=== PATIENT | female | born 1980 | race Caucasian/White ===

== ENCOUNTER 2018-12-13 05:37 | Inpatient (IN) ==
[2018-12-13] MEDS ORDERED: BUTORPHANOL 2 MG/ML VIAL IV PRN (05:57)
[2018-12-13] MEDS ORDERED: MEPERIDINE 50 MG/1 ML VIAL IV PRN (05:57)
[2018-12-13] MEDS ORDERED: OXYTOCIN/LR 20 UNIT/1,000 ML BAG IV SCH (06:00)
[2018-12-13] MEDS: LACTATED RINGERS 1,000 ML IV SCH ×2 (06:36→20:57)
[2018-12-13 06:41] LABS: Basophils # 0.1 10*3/uL (0.0-0.2); Basophils % 0.6 % (0.0-0.8); Eosinophils # 0.4 10*3/uL (0.0-0.87); Eosinophils % 2.7 % (0.00-10.9); Hematocrit 33.4 VOL% (35.7-47.0); Immature Granulocytes % 2.9 %; Immature Granulocytes Absolute 0.41 #; Lymphocytes # 2.6 10*3/uL (1.4-4.0); Lymphocytes % 18.2 % (21.3-54.2); Mean Corpuscular HGB Conc 32.9 GM/DL (32-36); Mean Corpuscular Volume 89.3 FL (87-102); Mean Platelet Volume 9.7 FL (9.6-12.0); Monocytes % 6.1 % (1.7-12.7); Neutrophils % 69.5 % (38.7-73.9); Platelet Count 340 T/CUMM (130-400); Red Blood Count 3.74 MC/CUMM (3.8-5.5); Red Cell Distribution Width 12.8 % (9.3-17.3)
[2018-12-13 07:04] LABS: Alanine Aminotransferase 12 U/L (13-56); Albumin 2.5 G/DL (3.4-5.0); Alkaline Phosphatase 165 U/L (45-117); Aspartate Amino Transferase 14 U/L (0-37); Bilirubin,Total < 0.39 MG/DL (0.2-1.0); Blood Urea Nitrogen 11 MG/DL (7-18); Estimated Glom Filtration Rate 127 ML/MIN; Glucose 107 MG/DL (74-106); Osmolality,Calculated 268.1 MOS/KG (273-304); Total Protein 6.7 G/DL (6.4-8.3)
[2018-12-13] MEDS ORDERED: INFLUENZA VIRUS VACCINE 0.5 ML SYRINGE IM ONE (07:15)
[2018-12-13] MEDS ORDERED: FAMOTIDINE 20 MG/2 ML VIAL IV ONE (07:49)
[2018-12-13] MEDS ORDERED: LACTATED RINGERS 1,000 ML IV ONE (07:49)
[2018-12-13] MEDS ORDERED: CITRIC ACID/SODIUM CITRATE 30 ML UDCUP PO ONE (07:49)
[2018-12-13] MEDS ORDERED: ePHEDrine 50 MG/ML AMP IV PRN (07:49)
[2018-12-13] MEDS ORDERED: NALOXONE 0.4 MG/ML VIAL IV PRN (07:50)
[2018-12-13] MEDS ORDERED: hydrOXYzine HCL 25 MG/1 ML VIAL IM PRN (07:50)
[2018-12-13] MEDS ORDERED: PROMETHAZINE 25 MG/1 ML VIAL IM ONE (07:50)
[2018-12-13] MEDS ORDERED: diphenhydrAMINE 50 MG/1 ML VIAL IV PRN ×2 (07:50)
[2018-12-13] MEDS ORDERED: fentaNYL 2 MCG/ROPIV 0.2% EPID 100 ML EPIDURAL SCH (08:00)
[2018-12-13] MEDS: ONDANSETRON 4 MG/2 ML VIAL IV PRN ×2 (10:26→19:33)
[2018-12-13] MEDS ORDERED: TRANEXAMIC ACID 1,000 MG/10 ML VIAL ONE (11:50)
[2018-12-13] MEDS ORDERED: miSOPROStol 200 MCG TABLET ONE (11:50)
[2018-12-13] MEDS ORDERED: METHYLERGONOVINE 0.2 MG/1 ML AMP ONE (11:51)
[2018-12-13] MEDS ORDERED: ceFAZolin 2,000 MG in PREMIX 1 EACH IV ONE (11:51)
[2018-12-13] MEDS ORDERED: CARBOPROST TROMETHAMINE 250 MCG/ML AMP IM ONE (11:51)
[2018-12-13] MEDS ORDERED: OXYTOCIN/LR 20 UNIT/1,000 ML BAG IV ONE ×2 (11:51→13:25)
[2018-12-13] MEDS ORDERED: BUPIVACAINE SPINAL 0.75% 2 ML AMP SPINAL ONE (12:00)
[2018-12-13] MEDS ORDERED: EPINEPHrine 1 MG/ML VIAL ONE (12:00)
[2018-12-13] MEDS ORDERED: DEXAMETHASONE 4 MG/1 ML VIAL ONE (12:01)
[2018-12-13] MEDS ORDERED: BUPIVACAINE 0.5% 50 ML VIAL ONE (12:01)
[2018-12-13 12:21] LABS: Apearance,Urine CLEAR (Clear); Bacteria,Urine Occasional /HPF (Few); Bilirubin,Urine Negative (Negative); Blood, Urine Small mg/dL (Negative); Glucose,Urine (UA) Negative (Negative); Ketones,Urine Negative (Negative); Mucus,Urine Occasional /LPF (Occasional); Nitrite,Urine Negative (Negative); Protein,Urine Negative; RBC,Urine 11 /HPF (0-4); Renal Epithelial Cells,Urine Occasional /HPF (<1); Squamous Epithelial Cell,Urine Occasional /HPF (0-10); Urine Color Yellow (Yellow); Urine Urobilinogen < 2.0 EU/DL (0.2-1.0); WBC,Urine 2 /HPF (0-6)
[2018-12-13] MEDS ORDERED: DIPH/TET/ACEL PERT BOOSTER VACCINE 0.5 ML VIAL IM ONE (13:25)
[2018-12-13] MEDS ORDERED: WITCH HAZEL PADS 100/JAR TOP PRN (13:25)
[2018-12-13] MEDS ORDERED: BISACODYL 10 MG SUPP RECTAL PRN (13:25)
[2018-12-13] MEDS ORDERED: ONDANSETRON 4 MG/2 ML VIAL IV PRN (13:25)
[2018-12-13] MEDS ORDERED: MEASLES/MUMPS/RUBELLA VACCINE 0.5 ML VIAL SUBCUT ONE (13:25)
[2018-12-13] MEDS ORDERED: HYDROCORTISONE 2.5% RECTAL CREAM 30 GM TUBE TOP PRN (13:25)
[2018-12-13] MEDS ORDERED: RHO(D) IMMUNE GLOBULIN 300 MCG SYRINGE IM ONE (13:25)
[2018-12-13] MEDS ORDERED: LANOLIN 50% CREAM 0.3 OZ TUBE TOP PRN (13:25)
[2018-12-13] MEDS ORDERED: BENZOCAINE 20%/MENTHOL 0.5% SPRAY 56 GM CAN TOP PRN (13:25)
[2018-12-13] MEDS ORDERED: ACETAMINOPHEN 325 MG TABLET PO PRN (13:25)
[2018-12-13] MEDS ORDERED: fentaNYL 100 MCG/2 ML VIAL ONE (13:46)
[2018-12-13] MEDS ORDERED: MORPHINE 10 MG/10 ML VIAL ONE (13:47)
[2018-12-13] MEDS ORDERED: PHENYLEPHRINE 1 MG/10 ML SYRINGE IV ONE (13:48)
[2018-12-13] MEDS: ceFAZolin 1,000 MG in SYRINGE 1 EACH IV SCH (20:47)
[2018-12-13] MEDS: DOCUSATE SODIUM 100 MG CAPSULE PO SCH (21:45)
[2018-12-14] MEDS: ceFAZolin 1,000 MG in SYRINGE 1 EACH IV SCH (04:13)
[2018-12-14] MEDS: IBUPROFEN 800 MG TABLET PO PRN ×3 (04:34→19:57)
[2018-12-14 05:18] LABS: Basophils # 0.1 10*3/uL (0.0-0.2); Basophils % 0.2 % (0.0-0.8); Eosinophils # 0.1 10*3/uL (0.0-0.87); Eosinophils % 0.2 % (0.00-10.9); Hematocrit 27.7 VOL% (35.7-47.0); Hemoglobin 9.4 GM/DL (12.0-16.0); Immature Granulocytes Absolute 0.23 #; Lymphocytes # 2.1 10*3/uL (1.4-4.0); Lymphocytes % 9.4 % (21.3-54.2); Mean Corpuscular HGB Conc 33.9 GM/DL (32-36); Mean Corpuscular Volume 87.4 FL (87-102); Mean Platelet Volume 9.6 FL (9.6-12.0); Monocytes % 5.6 % (1.7-12.7); Neutrophils % 83.6 % (38.7-73.9); Platelet Count 290 T/CUMM (130-400); Red Blood Count 3.17 MC/CUMM (3.8-5.5); Red Cell Distribution Width 12.5 % (9.3-17.3); White Blood Count 22.2 T/CUMM (4-12)
[2018-12-14 06:29] LABS: Eosinophils 1 % (0-10); Lymphocytes 7 % (20-55); Platelet Estimate Adequate; Segmented Neutrophils 88 % (50-85); Total Cells Counted 100
[2018-12-14 06:30] LABS: Hypochromasia 1+
[2018-12-14] MEDS: oxyCODONE/ACETAMINOPHEN 5-325 MG TABLET PO PRN ×4 (07:20→19:58)
[2018-12-14] MEDS ORDERED: SIMETHICONE CHEW 80 MG TABLET PO PRN (07:24)
[2018-12-14] MEDS: DOCUSATE SODIUM 100 MG CAPSULE PO SCH ×2 (11:15→22:36)
[2018-12-14] MEDS: MAGNESIUM HYDROXIDE SUSP 30 ML UDCUP PO PRN ×2 (11:15→19:58)
[2018-12-15] MEDS: IBUPROFEN 800 MG TABLET PO PRN ×2 (01:01→06:58)
[2018-12-15] MEDS: oxyCODONE/ACETAMINOPHEN 5-325 MG TABLET PO PRN ×2 (01:02→09:08)
[2018-12-15 07:18] VITALS: BP 110/66
[2018-12-15] MEDS ORDERED: INFLUENZA VIRUS VACCINE 0.5 ML SYRINGE IM ONE (07:53)
[2018-12-15] MEDS ORDERED: DIPH/TET/ACEL PERT BOOSTER VACCINE 0.5 ML VIAL IM ONE (07:53)
[2018-12-15] MEDS: DOCUSATE SODIUM 100 MG CAPSULE PO SCH (09:09)
== END 2018-12-15 13:30 | disposition home or self-care (01) | DRG 788 ==
LOC: N.LDOUT 05:37 → N.LD 05:40 → N.OB 16:37
PROVIDERS: ADMIT Specialist; ATTEND Specialist
PROC: LDCSECT (ICD-10-PCS; 2018-12-13 12:00)